=== PATIENT | female | born 1980 | race African-American/Black ===

== ENCOUNTER 2018-01-28 14:36 | Emergency (ER) | payer MEDICARE, MEDICAID ==
[~2018-01-28] VITALS: Ht 162.6 cm; Wt 50.0 kg
[2018-01-28 15:55] LABS: CLARITY URINE CLEAR (CLEAR); COLOR URINE YELLOW (YELLOW); KETONES URINE NEGATIVE (NEGATIVE); LEUKOCYTE ESTERASE URINE 3+ (NEGATIVE); NITRITE URINE NEGATIVE (NEGATIVE); OCCULT BLOOD URINE TRACE (NEGATIVE); PH URINE 6.5 (4.5-8.0); PROTEIN URINE NEGATIVE (NEGATIVE); SPECIFIC GRAVITY URINE 1.019 (1.005-1.030); UROBILINOGEN URINE 0.2 E.U./dL (0.2-1.0)
[2018-01-28] MEDS ORDERED: ONDANSETRON 4MG ODT PO STA (18:19)
[2018-01-28] MEDS ORDERED: ACETAMINOPHEN 325MG TABLET PO STA (18:19)
[2018-01-28 19:02] LABS: BASOPHILS % 0.7 % (0.0-2.0); EOSINOPHILS % 1.6 % (0.0-5.0); HEMATOCRIT. 44.2 % (36.0-48.0); HEMOGLOBIN. 15.3 g/dL (12.0-16.0); LYMPHOCYTES % 43.2 % (20.0-50.0); MEAN CORPUSCULAR HEMOGLOBIN 30.6 pg (28.0-32.0); MEAN CORPUSCULAR VOLUME 88.3 fL (81.0-99.0); MEAN PLATELET VOLUME 8.9 fl (7.4-10.4); MONOCYTES % 6.6 % (2.0-8.0); NEUTROPHILS % 47.9 % (40.0-76.0); PLATELET 284 x1000/uL (130-400); RED CELL DISTRIBUTION WIDTH 12.9 % (11.6-14.6)
[2018-01-28 19:06] LABS: CHLORIDE 99 mEq/L (98-107)
[2018-01-28 19:07] LABS: PROTHROMBIN TIME 10.9 sec (9.4-11.6)
[2018-01-28] MEDS ORDERED: CEFTRIAXONE SODIUM 250 MG/VIAL IM ONE (21:15)
[2018-01-28] MEDS ORDERED: AZITHROMYCIN 500 MG TABLET PO ONE (21:15)
[2018-01-28] MEDS ORDERED: LIDOCAINE HCL 1% 20ML VIAL (Pyxis) INJ MC ONE (22:15)
[2018-01-28 22:50] VITALS: BP 119/67
== END 2018-01-28 22:56 | disposition home or self-care (01) ==
LOC: ER 14:36
DX: N39.0 Urinary tract infection, site not specified (principal); N76.0 Acute vaginitis; B96.89 Other specified bacterial agents as the cause of diseases classified elsewhere
CPT/HCPCS: 36415; 76830; 76856; 80053; 81003; 81025; 83690; 85025; 85610; 87086; 87210; 87491; 87591; 96372; 99285; J0696; J3490; Q0162

== ENCOUNTER 2018-02-05 10:58 | Emergency (ER) | payer OTHER, MEDICAID ==
[~2018-02-05] VITALS: Ht 165.1 cm; Wt 65.0 kg
[2018-02-05] MEDS ORDERED: CEFTRIAXONE SODIUM 250 MG/VIAL IM ONE (11:30)
[2018-02-05] MEDS ORDERED: AZITHROMYCIN 500 MG TABLET PO ONE (11:30)
[2018-02-05 11:51] LABS: CLARITY URINE CLEAR (CLEAR); COLOR URINE ORANGE (YELLOW); KETONES URINE 2+ (NEGATIVE); LEUKOCYTE ESTERASE URINE 3+ (NEGATIVE); NITRITE URINE NEGATIVE (NEGATIVE); OCCULT BLOOD URINE 1+ (NEGATIVE); PH URINE 6.5 (4.5-8.0); PROTEIN URINE NEGATIVE (NEGATIVE); SPECIFIC GRAVITY URINE 1.019 (1.005-1.030)
[2018-02-05] MEDS ORDERED: FLUCONAZOLE 100MG TABLET PO ONE (12:30)
[2018-02-05 12:42] VITALS: BP 152/71
[2018-02-09 13:07] LABS: CHLAMYDIA TRACHOMATIS NAA Negative (Negative); NEISSERIA GONORRHOEAE NAA Negative (Negative)
== END 2018-02-05 12:52 | disposition home or self-care (01) ==
LOC: ER 11:32
DX: N76.0 Acute vaginitis (principal); F32.9 Major depressive disorder, single episode, unspecified; R11.2 Nausea with vomiting, unspecified; R51 Headache; M79.1 Myalgia
CPT/HCPCS: 81003; 87086; 87491; 87591; 96372; 99284; J0696

== ENCOUNTER 2018-02-14 18:19 | Emergency (ER) | payer OTHER ==
[~2018-02-14] VITALS: Ht 160 cm; Wt 55.0 kg
[2018-02-14] MEDS ORDERED: FLUCONAZOLE 100MG TABLET PO ONE (21:30)
[2018-02-14] MEDS ORDERED: FLUCONAZOLE 150MG TABLET PO SCH (21:40)
[2018-02-14 21:53] VITALS: BP 135/81
== END 2018-02-14 21:57 | disposition home or self-care (01) ==
LOC: ER 18:44
DX: N76.0 Acute vaginitis (principal); N92.0 Excessive and frequent menstruation with regular cycle; R11.10 Vomiting, unspecified; R19.7 Diarrhea, unspecified; F32.9 Major depressive disorder, single episode, unspecified
CPT/HCPCS: 81025; 99283

== ENCOUNTER 2018-04-07 10:13 | Emergency (ER) | payer OTHER, MEDICAID ==
[~2018-04-07] VITALS: Ht 162.6 cm; Wt 55.0 kg
[2018-04-07 10:20] VITALS: BP 134/85
[2018-04-07] MEDS ORDERED: CEFTRIAXONE SODIUM 250 MG/VIAL IM ONE (12:15)
[2018-04-07] MEDS ORDERED: AZITHROMYCIN 500 MG TABLET PO ONE (12:15)
[2018-04-07] MEDS ORDERED: ACETAMINOPHEN 325MG TABLET PO ONE (12:15)
[2018-04-07 12:41] LABS: BASOPHILS % 1.1 % (0.0-2.0); EOSINOPHILS % 0.3 % (0.0-5.0); HEMATOCRIT. 43.7 % (36.0-48.0); HEMOGLOBIN. 14.8 g/dL (12.0-16.0); LYMPHOCYTES % 23.2 % (20.0-50.0); MEAN CORPUSCULAR HEMOGLOBIN 30.7 pg (28.0-32.0); MEAN CORPUSCULAR VOLUME 90.7 fL (81.0-99.0); MEAN PLATELET VOLUME 8.9 fl (7.4-10.4); MONOCYTES % 5.6 % (2.0-8.0); NEUTROPHILS % 69.8 % (40.0-76.0); PLATELET 250 x1000/uL (130-400); RED BLOOD CELL COUNT 4.82 mill/uL (4.2-5.4); RED CELL DISTRIBUTION WIDTH 14.1 % (11.6-14.6)
[2018-04-07 12:48] LABS: CHLORIDE 107 mEq/L (98-107)
[2018-04-07 14:54] LABS: CLARITY URINE CLEAR (CLEAR); COLOR URINE YELLOW (YELLOW); KETONES URINE NEGATIVE (NEGATIVE); LEUKOCYTE ESTERASE URINE NEGATIVE (NEGATIVE); NITRITE URINE NEGATIVE (NEGATIVE); OCCULT BLOOD URINE 1+ (NEGATIVE); PH URINE 7.5 (4.5-8.0); PROTEIN URINE NEGATIVE (NEGATIVE); SPECIFIC GRAVITY URINE 1.007 (1.005-1.030); UROBILINOGEN URINE 0.2 E.U./dL (0.2-1.0)
[2018-04-13 04:16] LABS: CHLAMYDIA TRACHOMATIS NAA Negative (Negative); NEISSERIA GONORRHOEAE NAA Negative (Negative)
== END 2018-04-07 15:00 | disposition left against medical advice (07) ==
LOC: ER 10:13
DX: R10.30 Lower abdominal pain, unspecified (principal); N93.8 Other specified abnormal uterine and vaginal bleeding; N89.8 Other specified noninflammatory disorders of vagina
CPT/HCPCS: 36415; 76830; 76856; 80053; 81003; 81025; 83690; 85025; 87210; 87491; 87591; 93005; 96372; 99285; J0696

== ENCOUNTER 2018-05-08 00:35 | Emergency (ER) | payer OTHER, MEDICAID ==
[~2018-05-08] VITALS: Ht 160 cm; Wt 55.0 kg
[2018-05-08 01:59] LABS: CLARITY URINE CLEAR (CLEAR); COLOR URINE YELLOW (YELLOW); KETONES URINE TRACE (NEGATIVE); LEUKOCYTE ESTERASE URINE TRACE (NEGATIVE); NITRITE URINE NEGATIVE (NEGATIVE); OCCULT BLOOD URINE TRACE (NEGATIVE); PROTEIN URINE TRACE (NEGATIVE); SPECIFIC GRAVITY URINE 1.024 (1.005-1.030); UROBILINOGEN URINE 0.2 E.U./dL (0.2-1.0)
[2018-05-08] MEDS ORDERED: AZITHROMYCIN 500 MG TABLET PO ONE (05:15)
[2018-05-08] MEDS ORDERED: METRONIDAZOLE 500MG TABLET PO ONE (05:15)
[2018-05-08] MEDS ORDERED: ONDANSETRON HCL 4MG TABLET PO ONE (05:15)
[2018-05-08] MEDS ORDERED: CEFTRIAXONE SODIUM 250 MG/VIAL IM ONE (05:15)
[2018-05-08 06:08] VITALS: BP 120/79
[2018-05-12 04:14] LABS: CHLAMYDIA TRACHOMATIS NAA Negative (Negative); NEISSERIA GONORRHOEAE NAA Negative (Negative)
== END 2018-05-08 06:09 | disposition home or self-care (01) ==
LOC: ER 00:35
DX: A59.01 Trichomonal vulvovaginitis (principal); R03.0 Elevated blood-pressure reading, without diagnosis of hypertension; F17.210 Nicotine dependence, cigarettes, uncomplicated
CPT/HCPCS: 81003; 81025; 87491; 87591; 96372; 99284; J0696; Q0162

== ENCOUNTER 2018-10-13 13:44 | Emergency (ER) | payer BC, MEDICAID ==
[~2018-10-13] VITALS: Ht 167.6 cm; Wt 70.0 kg
[2018-10-13] MEDS ORDERED: AZITHROMYCIN 500 MG TABLET PO ONE (16:15)
[2018-10-13] MEDS ORDERED: CEFTRIAXONE SODIUM 250 MG/VIAL IM ONE (16:15)
[2018-10-13 16:37] LABS: CLARITY URINE CLEAR (CLEAR); COLOR URINE YELLOW (YELLOW); KETONES URINE NEGATIVE (NEGATIVE); LEUKOCYTE ESTERASE URINE 1+ (NEGATIVE); NITRITE URINE NEGATIVE (NEGATIVE); OCCULT BLOOD URINE NEGATIVE (NEGATIVE); PROTEIN URINE NEGATIVE (NEGATIVE); SPECIFIC GRAVITY URINE 1.021 (1.005-1.030); UROBILINOGEN URINE 0.2 E.U./dL (0.2-1.0)
[2018-10-13 18:06] VITALS: BP 115/69
[2018-10-16 17:06] LABS: CHLAMYDIA TRACHOMATIS NAA Negative (Negative); NEISSERIA GONORRHOEAE NAA Negative (Negative)
== END 2018-10-13 18:07 | disposition home or self-care (01) ==
LOC: ER 13:44
DX: N76.0 Acute vaginitis (principal); N39.0 Urinary tract infection, site not specified; Z20.2 Contact with and (suspected) exposure to infections with a predominantly sexual mode of transmission; I10 Essential (primary) hypertension; F17.210 Nicotine dependence, cigarettes, uncomplicated
CPT/HCPCS: 81003; 81025; 87081; 87210; 87491; 87591; 96372; 99283; J0696

== ENCOUNTER 2019-02-12 16:48 | Emergency (ER) | payer OTHER, MEDICAID ==
[~2019-02-12] VITALS: Ht 160 cm; Wt 79.3 kg
[2019-02-12 16:57] VITALS: BP 125/77
[2019-02-12 18:12] LABS: CLARITY URINE CLEAR (CLEAR); COLOR URINE YELLOW (YELLOW); KETONES URINE NEGATIVE (NEGATIVE); LEUKOCYTE ESTERASE URINE NEGATIVE (NEGATIVE); NITRITE URINE NEGATIVE (NEGATIVE); OCCULT BLOOD URINE 2+ (NEGATIVE); PH URINE 6.5 (4.5-8.0); PROTEIN URINE NEGATIVE (NEGATIVE); UROBILINOGEN URINE 0.2 E.U./dL (0.2-1.0)
[2019-02-12] MEDS ORDERED: QUETIAPINE FUMARATE 25MG TABLET PO SCH (18:15)
== END 2019-02-12 19:22 | disposition left against medical advice (07) ==
LOC: ER 16:48
DX: F41.9 Anxiety disorder, unspecified (principal); N92.5 Other specified irregular menstruation; Z59.0 Homelessness
CPT/HCPCS: 81025; 99284

== ENCOUNTER 2019-12-24 11:10 | Emergency (ER) | payer MEDICARE, MEDICAID ==
[~2019-12-24] VITALS: Ht 160 cm; Wt 80.0 kg
[2019-12-24 11:28] VITALS: BP 111/95
[2019-12-24] MEDS ORDERED: ACETAMINOPHEN 325MG TABLET PO ONE (11:45)
[2019-12-24 13:35] LABS: CLARITY URINE CLEAR (CLEAR); COLOR URINE YELLOW (YELLOW); KETONES URINE NEGATIVE (NEGATIVE); LEUKOCYTE ESTERASE URINE NEGATIVE (NEGATIVE); NITRITE URINE NEGATIVE (NEGATIVE); OCCULT BLOOD URINE 2+ (NEGATIVE); PH URINE 7.5 (4.5-8.0); PROTEIN URINE NEGATIVE (NEGATIVE); SPECIFIC GRAVITY URINE 1.018 (1.005-1.030); UROBILINOGEN URINE 0.2 E.U./dL (0.2-1.0)
== END 2019-12-24 14:38 | disposition home or self-care (01) ==
LOC: ER 11:25
DX: N34.2 Other urethritis (principal)
CPT/HCPCS: 81003; 99283

== ENCOUNTER 2021-03-18 03:54 | Emergency (ER) | payer OTHER, MEDICAID ==
[~2021-03-18] VITALS: Ht 160 cm; Wt 73.0 kg
[2021-03-18 04:29] VITALS: BP 126/83
== END 2021-03-18 06:01 | disposition left against medical advice (07) ==
LOC: ER 03:54
DX: Z53.21 Procedure and treatment not carried out due to patient leaving prior to being seen by health care provider (principal)

== ENCOUNTER 2023-01-01 03:07 | Emergency (ER) | payer MEDICARE, MEDICAID ==
[~2023-01-01] VITALS: Ht 160 cm; Wt 73.0 kg
[2023-01-01 03:43] VITALS: BP 137/93
[2023-01-01] MEDS ORDERED: ACETAMINOPHEN 325MG TABLET PO STA (04:33)
[2023-01-01] MEDS ORDERED: LIDOCAINE HCL/PF 1% 10 MG/ML 5ML VIAL INFIL ONE (05:00)
[2023-01-01] MEDS ORDERED: CEFTRIAXONE SODIUM 500 MG/VIAL IM ONE (05:00)
[2023-01-01 05:17] LABS: CLARITY URINE CLEAR (CLEAR); COLOR URINE YELLOW (YELLOW); KETONES URINE NEGATIVE (NEGATIVE); LEUKOCYTE ESTERASE URINE NEGATIVE (NEGATIVE); NITRITE URINE NEGATIVE (NEGATIVE); OCCULT BLOOD URINE NEGATIVE (NEGATIVE); PROTEIN URINE NEGATIVE (NEGATIVE)
[2023-01-01] MEDS ORDERED: CLOT21CR4 VG (05:37)
[2023-01-01] MEDS ORDERED: DOXY100T28 PO (05:37)
[2023-01-04 04:08] LABS: NEISSERIA GONORRHOEAE NAA Negative (Negative)
== END 2023-01-01 05:53 | disposition home or self-care (01) ==
LOC: ER 03:07
DX: N72 Inflammatory disease of cervix uteri (principal)
CPT/HCPCS: 81003; 81025; 87210; 87491; 87591; 96372; 99283; J0696; J3490

== ENCOUNTER 2024-01-13 01:15 | Emergency (ER) | payer OTHER, MEDICAID ==
[~2024-01-13] VITALS: Ht 160 cm; Wt 73.0 kg
[~2024-01-13 01:15] MED LIST: CLOT21CR4 VG; DOXY100T28 MT; DOXY100T28 PO
[2024-01-13 01:23] VITALS: TEMP 98.8; O2SAT 100
[2024-01-13] MEDS ORDERED: VAGICR TOP (02:06)
[2024-01-13] MEDS ORDERED: DOXY100C5 MT (02:06)
[2024-01-13 02:34] LABS: CLARITY URINE CLOUDY (CLEAR); COLOR URINE YELLOW (YELLOW); GLUCOSE URINE NEGATIVE (NEGATIVE); KETONES URINE 4+ (NEGATIVE); LEUKOCYTE ESTERASE URINE 1+ (NEGATIVE); NITRITE URINE NEGATIVE (NEGATIVE); OCCULT BLOOD URINE 1+ (NEGATIVE); PROTEIN URINE 1+ (NEGATIVE)
[2024-01-13] MEDS: CEFTRIAXONE SODIUM 500MG VIAL IM ONE (02:39)
[2024-01-13 02:40] VITALS: BP 128/87; PULSE 98; RESP 18
[2024-01-13 08:26] LABS: BACTERIA URINE 1+; MUCUS URINE TRACE /lpf (< = 2+); SQUAMOUS EPITHELIAL CELL URINE 1+ /lpf (RARE/1+)
[2024-01-13 08:27] LABS: RBC URINE 0-2 /hpf (0-2); WBC URINE 0-2 /hpf (0-2)
== END 2024-01-13 02:41 | disposition home or self-care (01) ==
LOC: ER 02:29
DX: N72 Inflammatory disease of cervix uteri (principal); N76.0 Acute vaginitis; Z88.8 Allergy status to other drugs, medicaments and biological substances
CPT/HCPCS: 99284; 81003; 81025; 93005; 96372; J0696